=== PATIENT | male | born 1955 | race Caucasian/White ===

== ENCOUNTER 2018-01-26 18:36 | Emergency (ER) | payer BC ==
[~2018-01-26] VITALS: Ht 182.9 cm; Wt 124.0 kg
[2018-01-26 18:44] VITALS: BP 216/110; PULSE 100; RESP 18; TEMP 97.6; O2SAT 98
[2018-01-26 19:05] VITALS: BP 206/118; PULSE 88; RESP 18; O2SAT 97
[2018-01-26] MEDS ORDERED: LOSA25TA PO (19:08)
--- NOTE | 2018-01-26 19:08 | PD ---
HPI Chief Complaint: Hypertension Time Seen by Provider: 18:56 Travel History International Travel<30 days: No Contact w/Intl Traveler<30days: No Traveled to known affect area: No History of Present Illness HPI 62-year-old male complains headache and elevated blood pressure. Patient has history of hypertension. Patient was on lisinopril about a year and a half ago. Patient states that he has side effect with lisinopril including shortness of breath and generalized malaise. Patient was advised to stop lisinopril and put on losartan. Patient has been taking losartan for the past year. Patient states that he noticed blood pressures elevated recently. Patient had an appointment with a dentist about 3 weeks ago and dental surgery was deferred because of high blood pressure. Patient states that he has mild aching headache for the past 3 weeks. Patient denies any visual change. Patient denies any neck pain. Patient denies any chest pain or shortness of breath. Patient denies abdominal pain. Patient denies any focal weakness or numbness of extremity. Patient denies a history of diabetes, hyperlipidemia. Patient is a non-smoker. Patient denies any alcohol or drug abuse. PFSH Past Medical History Cardiovascular Problems: Yes (HYPERTENSION) Social History Tobacco Use: No Allergies-Medications (Allergen,Severity, Reaction): Coded Allergies: Penicillins (Verified Allergy, Unknown, Anaphylaxis, 01/26/18) Reported Meds & Prescriptions Reported Meds & Active Scripts Active Amlodipine (Amlodipine Besylate) 10 Mg Tab 10 Mg PO DAILY Reported Losartan (Losartan Potassium) 25 Mg Tab 25 Mg PO DAILY Review of Systems General / Constitutional: No: Fever Eyes: No: Visual changes HENT: Positive: Headaches Cardiovascular: No: Chest Pain or Discomfort Respiratory: No: Shortness of Breath Gastrointestinal: No: Abdominal Pain Genitourinary: No: Dysuria Musculoskeletal: No: Pain Skin: No Rash Neurologic: No: Weakness Psychiatric: No: Depression Endocrine: No: Polydipsia Hematologic/Lymphatic: No: Easy Bruising Physical Exam Narrative GENERAL: Well-nourished, well-developed patient. SKIN: Focused skin assessment warm/dry. HEAD: Normocephalic. EYES: No scleral icterus. No injection or drainage. NECK: Supple, trachea midline. No JVD or lymphadenopathy. CARDIOVASCULAR: Regular rate and rhythm without murmurs, gallops, or rubs. RESPIRATORY: Breath sounds equal bilaterally. No accessory muscle use. GASTROINTESTINAL: Abdomen soft, non-tender, nondistended. MUSCULOSKELETAL: No cyanosis, or edema. BACK: Nontender without obvious deformity. No CVA tenderness. Neurologic exam normal. Data Data Last Documented VS Vital Signs Date Time Temp Pulse Resp B/P (MAP) Pulse Ox O2 Delivery O2 Flow Rate FiO2 01/26/18 20:25 79 18 174/93 (120) 96 01/26/18 20:15 Room Air 01/26/18 18:44 97.6 Orders Orders Complete Blood Count With Diff (01/26/18 19:03) Comprehensive Metabolic Panel (01/26/18 19:03) Thyroid Stimulating Hormone (01/26/18 19:03) Iv Access Insert/Monitor (01/26/18 19:03) Ecg Monitoring (01/26/18 19:03) Oximetry (01/26/18 19:03) Labetalol Inj (Trandate Inj) (01/26/18 19:15) Hydralazine Inj (Apresoline Inj) (01/26/18 19:45) Losartan (Cozaar) (01/26/18 20:30) Ed Discharge Order (01/26/18 20:22) Labs Laboratory Tests Test 01/26/18 19:17 White Blood Count 7.5 TH/MM3 Red Blood Count 4.94 MIL/MM3 Hemoglobin 15.9 GM/DL Hematocrit 45.4 % Mean Corpuscular Volume 91.9 FL Mean Corpuscular Hemoglobin 32.2 PG Mean Corpuscular Hemoglobin Concent 35.1 % Red Cell Distribution Width 12.7 % Platelet Count 158 TH/MM3 Mean Platelet Volume 9.6 FL Neutrophils (%) (Auto) 72.0 % Lymphocytes (%) (Auto) 18.7 % Monocytes (%) (Auto) 5.8 % Eosinophils (%) (Auto) 2.8 % Basophils (%) (Auto) 0.7 % Neutrophils # (Auto) 5.4 TH/MM3 Lymphocytes # (Auto) 1.4 TH/MM3 Monocytes # (Auto) 0.4 TH/MM3 Eosinophils # (Auto) 0.2 TH/MM3 Basophils # (Auto) 0.1 TH/MM3 CBC Comment DIFF FINAL Differential Comment Blood Urea Nitrogen 13 MG/DL Creatinine 1.10 MG/DL Random Glucose 104 MG/DL Total Protein 8.0 GM/DL Albumin 4.4 GM/DL Calcium Level 9.0 MG/DL Alkaline Phosphatase 84 U/L Aspartate Amino Transf (AST/SGOT) 39 U/L Alanine Aminotransferase (ALT/SGPT) 56 U/L Total Bilirubin 0.7 MG/DL Sodium Level 140 MEQ/L Potassium Level 3.7 MEQ/L Chloride Level 107 MEQ/L Carbon Dioxide Level 24.1 MEQ/L Anion Gap 9 MEQ/L Estimat Glomerular Filtration Rate 68 ML/MIN Thyroid Stimulating Hormone 3rd Gen 1.540 uIU/ML MDM Medical Decision Making Medical Screen Exam Complete: Yes Emergency Medical Condition: Yes Interpretation(s) 20 12 PM. CBC within normal limits. CMP within normal limits. Differential Diagnosis Differential diagnosis including uncontrolled hypertension, hypertensive urgency , hypertensive crisis. Narrative Course 62-year-old male with mild headache and elevated blood pressure. History hypertension. Patient is on losartan. Labetalol 10 mg IV given. Hydralazine 10 mg IV given. Blood pressure came under more control. Losartan 25 mg p.o. given. Diagnosis Primary Impression: Uncontrolled hypertension Patient Instructions: General Instructions Additional Instructions: Increase losartan from 25 mg daily to 50 mg daily. Amlodipine 10 mg daily if blood pressure is not under control. Advised patient to follow-up with personal physician in a.m. as scheduled. Return if worse. Med/Other Pt SpecificInfo: Prescription(s) given, No Change to Meds Scripts Amlodipine (Amlodipine) 10 Mg Tab 10 MG PO DAILY for Blood Pressure Management, #30 TAB 0 Refills Prov: Artie Teixeira MD 01/26/18 Disposition: 01 DISCHARGE HOME Condition: Stable Artie Teixeira MD Jan 26, 2018 19:08
[2018-01-26] MEDS ORDERED: LABETALOL HCL 100 MG/20 ML VIAL IV PUSH ONE (19:15)
[2018-01-26 19:33] LABS: AUTOMATED NEUTROPHIL # 5.4 TH/MM3 (1.8-7.7); BASOPHIL # 0.1 TH/MM3 (0-0.2); BASOPHIL % 0.7 % (0.0-2.0); EOSINOPHIL # 0.2 TH/MM3 (0-0.4); EOSINOPHIL % 2.8 % (0.0-4.0); HEMATOCRIT 45.4 % (39.0-51.0); HEMOGLOBIN 15.9 GM/DL (13.0-17.0); LYMPH % 18.7 % (9.0-44.0); LYMPHOCYTE # 1.4 TH/MM3 (1.0-4.8); MEAN CELL VOLUME 91.9 FL (80.0-100.0); MEAN CORPUSCULAR HEMOGLOBIN 32.2 PG (27.0-34.0); MEAN CORPUSCULAR HGB CONC 35.1 % (32.0-36.0); MEAN PLATELET VOLUME 9.6 FL (7.0-11.0); MONO % 5.8 % (0.0-8.0); MONOCYTE # 0.4 TH/MM3 (0-0.9); PLATELET COUNT 158 TH/MM3 (150-450); RED BLOOD COUNT 4.94 MIL/MM3 (4.50-5.90); RED CELL DISTRIBUTION WIDTH 12.7 % (11.6-17.2); WHITE BLOOD COUNT 7.5 TH/MM3 (4.0-11.0)
[2018-01-26 19:42] VITALS: BP 194/116; PULSE 74; RESP 18; O2SAT 96
[2018-01-26 19:44] LABS: CHLORIDE 107 MEQ/L (98-107); SODIUM (NA) 140 MEQ/L (136-145)
[2018-01-26] MEDS ORDERED: hydrALAZINE HCL 20 MG/ML VIAL IV PUSH ONE (19:45)
[2018-01-26 19:48] LABS: ALBUMIN 4.4 GM/DL (3.4-5.0); BICARBONATE 24.1 MEQ/L (21.0-32.0); BLOOD UREA NITROGEN 13 MG/DL (7-18); GLUCOSE,RANDOM 104 MG/DL (74-106)
[2018-01-26 19:51] LABS: ALT (GPT) 56 U/L (12-78); AST (GOT) 39 U/L (15-37); GLOMERULAR FILTRATION RATE 68 ML/MIN (>89)
[2018-01-26 19:53] LABS: TOTAL BILIRUBIN ADULT 0.7 MG/DL (0.2-1.0)
[2018-01-26 19:54] LABS: ALKALINE PHOSPHATASE 84 U/L (45-117)
[2018-01-26 20:01] VITALS: BP 199/103; PULSE 73; RESP 18; O2SAT 96
[2018-01-26 20:15] VITALS: BP 185/99; PULSE 75; RESP 18; O2SAT 97
[2018-01-26] MEDS ORDERED: AMLO10TA2 PO (20:21)
[2018-01-26 20:25] VITALS: BP 174/93
[2018-01-26] MEDS ORDERED: LOSARTAN 25 MG TAB PO ONE (20:30)
== END 2018-01-26 20:38 | disposition home or self-care (01) ==
LOC: PHED 18:36
DX: I10 Essential (primary) hypertension (principal)
CPT/HCPCS: 80053; 84443; 85025; 96374; 96375; 99284; J0360